=== PATIENT | female | born 1970 | race Caucasian/White ===

== ENCOUNTER 2017-11-28 18:49 | Emergency (ER) | payer BC ==
[~2017-11-28] VITALS: Ht 165.1 cm; Wt 83.5 kg
[2017-11-28 19:28] VITALS: Ht 165.1 cm; Wt 83.5 kg
[2017-11-28 21:31] LABS: CALCIUM 8.5 mg/dL (8.5-10.1); CARBON DIOXIDE 23.4 mmol/L (21-32); CHLORIDE SERUM 107 mmol/L (98-107); CREATININE SERUM 0.6 mg/dL (0.6-1.0); GFR1 > 60 mL/min; GLUCOSE SERUM 97 mg/dL (74-106); POTASSIUM SERUM 3.8 mmol/L (3.5-5.1); SODIUM SERUM 139 mmol/L (136-145)
[2017-11-28 22:27] VITALS: BP 142/95
== END 2017-11-28 22:28 | disposition home or self-care (01) ==
LOC: ED 18:49
PROVIDERS: Emergency Medicine
DX: R51 Headache (principal); R07.9 Chest pain, unspecified; R11.0 Nausea; R53.1 Weakness; E78.00 Pure hypercholesterolemia, unspecified
CPT/HCPCS: J1885